=== PATIENT | female | born 1930 | race Caucasian/White ===

== ENCOUNTER 2017-06-20 08:24 | Inpatient (IN) | payer MEDICARE ==
[~2017-06-20] VITALS: Ht 167.6 cm; Wt 38.6 kg
[~2017-06-20 08:24] MED LIST: ACET-2144 PO; ALB0.5UD IH; ASPI81TA52 PO; EST1T PO; FLO0.1T PO; LISI10TA4 PO; METO-395 PO; MIRA50TA PO; POTA-82 PO; SOLI5TAB2 PO; [UNRECOGNIZED DRUG - CODE] PO
[2017-06-20 09:00] LABS: BASOPHILS % (AUTO) 0.1 % (0-1); EOSINOPHILS # (AUTO) 0.1 X10'3 (0-0.9); EOSINOPHILS % (AUTO) 0.8 % (0-6); HEMATOCRIT 32.1 % (35.0-45.0); HEMOGLOBIN 10.9 g/dl (12.0-16.0); LYMPHOCYTES # (AUTO) 1.3 X10'3 (1.1-4.8); LYMPHOCYTES % (AUTO) 11.9 % (21-51); MEAN CORPUSCULAR HGB CONC 34.2 % (33.0-36.5); MEAN CORPUSCULAR VOLUME 96.5 FL (78-98); MEAN PLATELET VOLUME 8.5 FL (7.4-10.4); MONOCYTES # (AUTO) 0.4 X10'3 (0-0.9); MONOCYTES % (AUTO) 3.6 % (2-12); NEUTROPHILS # (AUTO) 8.9 X10'3 (1.8-7.7); NEUTROPHILS % (AUTO) 83.6 % (42-75); PLATELET COUNT 192 X10'3 (140-440); RED BLOOD COUNT 3.32 X10'6 (4.20-5.60); RED CELL DISTRIBUTION WIDTH 13.1 % (11.5-14.5); WHITE BLOOD COUNT 10.7 X10'3 (4.5-11.0)
[2017-06-20] MEDS ORDERED: diltiazem 5mg/ml 5ml inj. IV ONE ×2 (09:30→10:45)
[2017-06-20 09:32] LABS: ALANINE AMINOTRANSFERASE 13 U/L (12-78); ALBUMIN 2.7 G/DL (3.4-5.0); ALBUMIN/GLOBULIN RATIO 0.7 (1.1-1.5); ALKALINE PHOSPHATASE 73 IU/L (46-116); ANION GAP 7 (8-16); ASPARTATE AMINO TRANSFERASE 15 U/L (10-37); BILIRUBIN,TOTAL 0.9 MG/DL (0.1-1.0); BLOOD UREA NITROGEN 22 MG/DL (7-18); CALCIUM 8.3 MG/DL (8.5-10.1); CHLORIDE 104 MMOL/L (99-107); CREATINE KINASE 21 U/L (26-192); ETHANOL < 0.010 GM/DL (0.0-0.010); GLUCOSE 91 MG/DL (70-104); SODIUM 146 MMOL/L (135-145); TOTAL PROTEIN 6.7 G/DL (6.4-8.2); TROPONIN I < 0.04 NG/ML (0.0-0.05); eGFR 53 ML/MIN
[2017-06-20 09:34] LABS: POTASSIUM 2.6 MMOL/L (3.5-5.1)
[2017-06-20] MEDS ORDERED: potassium Cl 20 mEq SR tablet PO ONE (09:45)
[2017-06-20] MEDS ORDERED: magnesium 2GM in 50ml NS 50 ML IV ONE (09:45)
[2017-06-20 10:01] LABS: MAGNESIUM 1.5 MG/DL (1.5-2.4)
[2017-06-20 10:05] LABS: CLARITY,URINE SLIGHTLY CLOUDY (Clear); COLOR,URINE YELLOW (Yellow); GLUCOSE, URINE NEGATIVE (Neg); KETONES,URINE TRACE mg/dl (Neg); LEUKOCYTE ESTERASE ,URINE NEGATIVE (Neg); NITRITES, URINE NEGATIVE (Neg); OCCULT BLOOD,URINE TRACE-INTACT (Neg); PROTEIN,URINE 30 mg/dl (Neg); UROBILINOGEN,URINE 0.2 E.U/dL (0.2-1.0)
[2017-06-20 10:07] LABS: UA COLLECTION TYPE STRAIGHT CATH
[2017-06-20 10:10] LABS: MUCUS STRANDS MODERATE /LPF (Neg); SQUAMOUS EPITHELIAL CELL,UR MODERATE /LPF (FEW)
[2017-06-20 10:11] LABS: BACTERIA,URINE 2+ /HPF (Neg); URINE AMPHETAMINE SCREEN NEGATIVE (Neg); URINE BARBITUATE SCREEN NEGATIVE (Neg); URINE BENZODIAZEPINES SCREEN NEGATIVE (Neg); URINE CANNABINOID SCREEN NEGATIVE (Neg); URINE COCAINE SCREEN NEGATIVE (Neg); URINE METHADONE SCREEN NEGATIVE (Neg); URINE OPIATE SCREEN NEGATIVE (Neg); URINE PHENCYCLIDINE SCREEN NEGATIVE (Neg)
[2017-06-20 10:12] LABS: RBC,URINE 0-2 /HPF (0-2)
[2017-06-20] MEDS: potassium 10mEq/100ml NS w/LIDOcaine (10mg/bag) IV SCH ×2 (11:39→13:50)
[2017-06-20] MEDS ORDERED: magnesium hydroxide 30ml (MOM) UD suspension PO PRN (12:05)
[2017-06-20] MEDS ORDERED: acetaminophen 325mg tablet PO PRN (12:05)
[2017-06-20] MEDS ORDERED: mag hydrox/Alum hydrox/simeth 30ml oral suspension PO PRN (12:05)
[2017-06-20] MEDS ORDERED: ondansetron/PF 4mg/2ml inj IV PRN (12:05)
[2017-06-20] MEDS: normal saline 1000ml 1,000 ML IV SCH ×2 (12:38→22:04)
[2017-06-20] MEDS ORDERED: CefTRIAXone/D5W-Rocephin 1gm 50 ML IV ONE (14:45)
[2017-06-20] MEDS: rivaroxaban 20mg tablet PO SCH (15:05)
[2017-06-20] MEDS: sodium chloride 0.45% 1,000 ML IV SCH (15:11)
[2017-06-20] MEDS ORDERED: FLO0.1T PO (16:12)
[2017-06-20] MEDS ORDERED: SOLI10TA2 PO (16:12)
[2017-06-20] MEDS ORDERED: ASPI-611 PO (16:12)
[2017-06-20] MEDS: diltiazem-D5W 125mg/125ml 125 ML IV SCH (17:40)
[2017-06-20] MEDS ORDERED: heparin, porcine 5000 units/ml vial SQ SCH (20:00)
[2017-06-20] MEDS ORDERED: potassium Cl 20 mEq SR tablet PO PRN ×2 (21:00)
[2017-06-20] MEDS ORDERED: potassium Cl 40MEQ/NS 500ml 500 ML IV PRN (21:00)
[2017-06-20] MEDS: potassium Cl 40MEQ/NS 500ml 500 ML IV PRN (21:45)
[2017-06-21] MEDS: sodium chloride 0.45% 1,000 ML IV SCH ×3 (00:39→19:15)
[2017-06-21] MEDS ORDERED: ibuprofen 100 MG/5 ML oral susp PO ONE (02:25)
[2017-06-21 06:19] LABS: BASOPHILS % (AUTO) 0.2 % (0-1); EOSINOPHILS # (AUTO) 0.2 X10'3 (0-0.9); EOSINOPHILS % (AUTO) 1.7 % (0-6); HEMATOCRIT 32.1 % (35.0-45.0); LYMPHOCYTES # (AUTO) 1.2 X10'3 (1.1-4.8); LYMPHOCYTES % (AUTO) 11.8 % (21-51); MEAN CORPUSCULAR HEMOGLOBIN 33.4 PG (27.0-31.0); MEAN CORPUSCULAR HGB CONC 34.4 % (33.0-36.5); MEAN CORPUSCULAR VOLUME 97.2 FL (78-98); MEAN PLATELET VOLUME 8.3 FL (7.4-10.4); MONOCYTES # (AUTO) 0.6 X10'3 (0-0.9); MONOCYTES % (AUTO) 5.9 % (2-12); NEUTROPHILS % (AUTO) 80.4 % (42-75); PLATELET COUNT 176 X10'3 (140-440); RED CELL DISTRIBUTION WIDTH 13.3 % (11.5-14.5); WHITE BLOOD COUNT 9.9 X10'3 (4.5-11.0)
[2017-06-21 06:25] LABS: INR 1.1 INR; PROTHROMBIN TIME 11.1 SECONDS (9.0-12.0)
[2017-06-21 06:27] LABS: ALBUMIN 2.5 G/DL (3.4-5.0); ANION GAP 10 (8-16); BLOOD UREA NITROGEN 21 MG/DL (7-18); BUN/CREATININE RATIO 26.3 (6.6-38.0); CALCIUM 7.8 MG/DL (8.5-10.1); CHLORIDE 106 MMOL/L (99-107); GLUCOSE 94 MG/DL (70-104); MAGNESIUM 1.7 MG/DL (1.5-2.4); POTASSIUM 4.2 MMOL/L (3.5-5.1); SODIUM 143 MMOL/L (135-145); TOTAL CARBON DIOXIDE 27.3 MMOL/L (24-32); eGFR 68 ML/MIN
[2017-06-21 07:32] LABS: BANDS% (MANUAL) 5 % (0-10); EOSINOPHILS % (MANUAL) 1 % (0-6); LYMPHOCYTES % (MANUAL) 14 % (21-51); MONOCYTES % (MANUAL) 9 % (2-12); NEUTROPHILS % (MANUAL) 71 % (42-75); PLATELET ESTIMATE NORMAL; TOTAL CELLS COUNTED 100
[2017-06-21] MEDS: rivaroxaban 20mg tablet PO SCH (08:00)
[2017-06-21] MEDS: lactobacillus rhamnosus 10,000 MMU CELLS/CAPSULE PO SCH ×2 (08:00→19:08)
[2017-06-21] MEDS: normal saline 1000ml 1,000 ML IV SCH (08:04)
[2017-06-21] MEDS ORDERED: MORPHINE 2MG in 2ml NS syringe IV PRN (10:00)
[2017-06-21] MEDS: pantoprazole 40 MG vial IV SCH (10:44)
[2017-06-21] MEDS: morphine 4 MG/ML inj SYRINge IV PRN ×2 (10:45→19:18)
[2017-06-21] MEDS ORDERED: POTA10TA10 PO (10:56)
[2017-06-21 13:15] VITALS: BP 156/68
[2017-06-21 15:00] VITALS: BP 159/67
[2017-06-21] MEDS: CefTRIAXone/D5W-Rocephin 1gm 50 ML IV SCH (15:05)
[2017-06-21] MEDS: metoprolol tartrate 1mg/ml inj IV SCH ×4 (18:50→19:35)
[2017-06-21 19:00] VITALS: BP 160/70
[2017-06-21] MEDS: heparin, porcine 5000 units/ml vial SQ SCH (19:07)
[2017-06-21] MEDS: diltiazem-D5W 125mg/125ml 125 ML IV SCH (19:10)
[2017-06-21 23:00] VITALS: BP 163/67
[2017-06-22] VITALS (13 sets, daily range): BP systolic 128–160; BP diastolic 70–97
[2017-06-22] MEDS: diltiazem-D5W 125mg/125ml 125 ML IV SCH ×2 (04:34→23:26)
[2017-06-22 05:10] LABS: BASOPHILS % (AUTO) 0.1 % (0-1); EOSINOPHILS # (AUTO) 0.1 X10'3 (0-0.9); EOSINOPHILS % (AUTO) 0.6 % (0-6); HEMATOCRIT 34.6 % (35.0-45.0); LYMPHOCYTES # (AUTO) 1.1 X10'3 (1.1-4.8); LYMPHOCYTES % (AUTO) 9.8 % (21-51); MEAN CORPUSCULAR HEMOGLOBIN 33.4 PG (27.0-31.0); MEAN CORPUSCULAR HGB CONC 34.6 % (33.0-36.5); MEAN CORPUSCULAR VOLUME 96.5 FL (78-98); MEAN PLATELET VOLUME 8.7 FL (7.4-10.4); MONOCYTES # (AUTO) 0.6 X10'3 (0-0.9); MONOCYTES % (AUTO) 5.4 % (2-12); NEUTROPHILS # (AUTO) 9.3 X10'3 (1.8-7.7); NEUTROPHILS % (AUTO) 84.1 % (42-75); PLATELET COUNT 246 X10'3 (140-440); RED BLOOD COUNT 3.58 X10'6 (4.20-5.60); RED CELL DISTRIBUTION WIDTH 12.9 % (11.5-14.5); WHITE BLOOD COUNT 11.1 X10'3 (4.5-11.0)
[2017-06-22 05:17] LABS: ALBUMIN 2.6 G/DL (3.4-5.0); ANION GAP 12 (8-16); BLOOD UREA NITROGEN 21 MG/DL (7-18); BUN/CREATININE RATIO 25.3 (6.6-38.0); CALCIUM 8.2 MG/DL (8.5-10.1); CHLORIDE 106 MMOL/L (99-107); CREATININE 0.83 MG/DL (0.40-0.90); GLUCOSE 86 MG/DL (70-104); MAGNESIUM 1.6 MG/DL (1.5-2.4); POTASSIUM 3.5 MMOL/L (3.5-5.1); PROTHROMBIN TIME 10.8 SECONDS (9.0-12.0); SODIUM 144 MMOL/L (135-145); TOTAL CARBON DIOXIDE 26.1 MMOL/L (24-32); eGFR 65 ML/MIN
[2017-06-22] MEDS: heparin, porcine 5000 units/ml vial SQ SCH ×2 (08:00→19:35)
[2017-06-22] MEDS: pantoprazole 40 MG vial IV SCH (08:11)
[2017-06-22] MEDS: rivaroxaban 20mg tablet PO SCH (08:12)
[2017-06-22] MEDS: lactobacillus rhamnosus 10,000 MMU CELLS/CAPSULE PO SCH ×2 (08:12→19:49)
[2017-06-22] MEDS: CefTRIAXone/D5W-Rocephin 1gm 50 ML IV SCH (08:12)
[2017-06-22] MEDS: sodium chloride 0.45% 1,000 ML IV SCH ×2 (14:00→19:49)
[2017-06-22] MEDS: VANCOMYCIN 750MG IV in NS 250 ML IV SCH (14:58)
[2017-06-23] VITALS (11 sets, daily range): BP systolic 95–150; BP diastolic 50–73
[2017-06-23] MEDS: sodium chloride 0.45% 1,000 ML IV SCH ×2 (02:45→12:45)
[2017-06-23 06:26] LABS: BASOPHILS % (AUTO) 0.1 % (0-1); EOSINOPHILS # (AUTO) 0.1 X10'3 (0-0.9); EOSINOPHILS % (AUTO) 1.3 % (0-6); HEMATOCRIT 36.7 % (35.0-45.0); HEMOGLOBIN 12.8 g/dl (12.0-16.0); LYMPHOCYTES # (AUTO) 1.1 X10'3 (1.1-4.8); LYMPHOCYTES % (AUTO) 11.1 % (21-51); MEAN CORPUSCULAR HEMOGLOBIN 33.5 PG (27.0-31.0); MEAN CORPUSCULAR HGB CONC 34.8 % (33.0-36.5); MEAN CORPUSCULAR VOLUME 96.4 FL (78-98); MEAN PLATELET VOLUME 8.6 FL (7.4-10.4); MONOCYTES # (AUTO) 0.2 X10'3 (0-0.9); NEUTROPHILS # (AUTO) 8.7 X10'3 (1.8-7.7); NEUTROPHILS % (AUTO) 85.5 % (42-75); PLATELET COUNT 277 X10'3 (140-440); RED BLOOD COUNT 3.81 X10'6 (4.20-5.60); RED CELL DISTRIBUTION WIDTH 12.6 % (11.5-14.5); WHITE BLOOD COUNT 10.1 X10'3 (4.5-11.0)
[2017-06-23 06:30] LABS: INR 1.1 INR; PROTHROMBIN TIME 11.6 SECONDS (9.0-12.0)
[2017-06-23 06:42] LABS: ALBUMIN 2.1 G/DL (3.4-5.0); ANION GAP 15 (8-16); BLOOD UREA NITROGEN 16 MG/DL (7-18); BUN/CREATININE RATIO 21.6 (6.6-38.0); CALCIUM 7.6 MG/DL (8.5-10.1); CHLORIDE 103 MMOL/L (99-107); CREATININE 0.74 MG/DL (0.40-0.90); GLUCOSE 75 MG/DL (70-104); MAGNESIUM 1.3 MG/DL (1.5-2.4); SODIUM 141 MMOL/L (135-145); eGFR 75 ML/MIN
[2017-06-23] MEDS ORDERED: pantoprazole 40mg Tablet.DR PO SCH (07:30)
[2017-06-23 07:37] LABS: POTASSIUM 2.7 MMOL/L (3.5-5.1)
[2017-06-23] MEDS: heparin, porcine 5000 units/ml vial SQ SCH ×2 (08:00→21:15)
[2017-06-23] MEDS: fludrocortisone acetate 0.1mg tablet PO SCH ×2 (08:00→20:00)
[2017-06-23] MEDS: rivaroxaban 20mg tablet PO SCH (08:00)
[2017-06-23] MEDS: lactobacillus rhamnosus 10,000 MMU CELLS/CAPSULE PO SCH ×2 (08:00→20:00)
[2017-06-23] MEDS ORDERED: pantoprazole 40 MG vial IV SCH (09:15)
[2017-06-23] MEDS ORDERED: magnesium hydroxide 30ml (MOM) UD suspension PO ONE (10:15)
[2017-06-23] MEDS ORDERED: bisacodyl 10mg suppository rectal RC STA (10:35)
[2017-06-23] MEDS: potassium Cl 40MEQ/NS 500ml 500 ML IV PRN (10:49)
[2017-06-23] MEDS ORDERED: enoxaparin 40mg/0.4ml syringe SQ SCH (12:00)
[2017-06-23] MEDS: diltiazem-D5W 125mg/125ml 125 ML IV SCH (13:30)
[2017-06-23] MEDS: diltiazem 30mg tablet PO SCH ×2 (15:00→20:00)
[2017-06-23] MEDS: CefTRIAXone/D5W-Rocephin 1gm 50 ML IV SCH (16:01)
[2017-06-23] MEDS ORDERED: potassium Cl oral solution 20 MEQ/15 ML PO PRN ×2 (18:21)
[2017-06-23] MEDS ORDERED: Potassium Cl inj 40 MEQ in normal saline 500ml IV soln 480 ML IV PRN (22:05)
[2017-06-24] MEDS ORDERED: diltiazem CD 120mg capsule (once-daily) PO SCH (01:00)
[2017-06-24] MEDS: diltiazem 30mg tablet PO SCH ×2 (02:00→08:00)
[2017-06-24 03:00] VITALS: BP 140/91
[2017-06-24] MEDS ORDERED: magnesium 4gm in 100ml NS 100 ML IV PRN (03:35)
[2017-06-24] MEDS ORDERED: magnesium 2GM in 50ml NS 50 ML IV PRN (03:35)
[2017-06-24] MEDS ORDERED: enalaprilat dihydrate 2.5mg/2ml vial IV ONE ×2 (05:30→13:15)
[2017-06-24 05:37] LABS: BASOPHILS % (AUTO) 0.3 % (0-1); EOSINOPHILS # (AUTO) 0.1 X10'3 (0-0.9); EOSINOPHILS % (AUTO) 0.6 % (0-6); HEMATOCRIT 37.1 % (35.0-45.0); HEMOGLOBIN 12.9 g/dl (12.0-16.0); LYMPHOCYTES % (AUTO) 8.2 % (21-51); MEAN CORPUSCULAR HEMOGLOBIN 33.4 PG (27.0-31.0); MEAN CORPUSCULAR HGB CONC 34.6 % (33.0-36.5); MEAN CORPUSCULAR VOLUME 96.4 FL (78-98); MEAN PLATELET VOLUME 8.8 FL (7.4-10.4); MONOCYTES # (AUTO) 0.4 X10'3 (0-0.9); MONOCYTES % (AUTO) 3.1 % (2-12); NEUTROPHILS # (AUTO) 11.2 X10'3 (1.8-7.7); NEUTROPHILS % (AUTO) 87.8 % (42-75); PLATELET COUNT 314 X10'3 (140-440); RED BLOOD COUNT 3.85 X10'6 (4.20-5.60); RED CELL DISTRIBUTION WIDTH 12.9 % (11.5-14.5); WHITE BLOOD COUNT 12.8 X10'3 (4.5-11.0)
[2017-06-24 06:00] VITALS: BP 187/79
[2017-06-24 06:15] LABS: INR 1.1 INR; PROTHROMBIN TIME 11.8 SECONDS (9.0-12.0)
[2017-06-24 06:23] LABS: ANISOCYTOSIS 1+; PLATELET ESTIMATE NORMAL; TOTAL CELLS COUNTED 100; TOXIC GRANULATION 1+
[2017-06-24 06:30] LABS: ALBUMIN 2.2 G/DL (3.4-5.0); ANION GAP 15 (8-16); BLOOD UREA NITROGEN 19 MG/DL (7-18); BUN/CREATININE RATIO 19.8 (6.6-38.0); CALCIUM 8.2 MG/DL (8.5-10.1); CHLORIDE 106 MMOL/L (99-107); CREATININE 0.96 MG/DL (0.40-0.90); GLUCOSE 79 MG/DL (70-104); MAGNESIUM 1.4 MG/DL (1.5-2.4); POTASSIUM 4.3 MMOL/L (3.5-5.1); SODIUM 142 MMOL/L (135-145); eGFR 55 ML/MIN
[2017-06-24] MEDS: VANCOMYCIN 750MG IV in NS 250 ML IV SCH (07:15)
[2017-06-24] MEDS: heparin, porcine 5000 units/ml vial SQ SCH (07:22)
[2017-06-24] MEDS ORDERED: LORazepam 2 mg/ml vial IV ONE ×2 (07:40→13:15)
[2017-06-24] MEDS: fludrocortisone acetate 0.1mg tablet PO SCH (08:00)
[2017-06-24] MEDS: lactobacillus rhamnosus 10,000 MMU CELLS/CAPSULE PO SCH (08:00)
[2017-06-24 08:30] VITALS: BP 145/69
[2017-06-24 11:00] VITALS: BP 189/96
[2017-06-24] MEDS ORDERED: MORPHINE 2MG in 2ml NS syringe IV ONE (13:15)
[2017-06-24] MEDS ORDERED: morphine 4 MG/ML inj SYRINge IV ONE (13:25)
[2017-06-24] MEDS ORDERED: morphine 10mg/ml inj. IV PRN (14:00)
[2017-06-24] MEDS ORDERED: LORazepam 2 mg/ml vial IV PRN (14:00)
[2017-06-24] MEDS ORDERED: morphine 10mg/0.5ml (conc. morphine) oral syringe PO PRN (14:00)
[2017-06-24] MEDS ORDERED: morphine 4 MG/ML inj SYRINge IV PRN ×2 (14:05)
[2017-06-24 19:00] VITALS: BP 161/73
[2017-06-24] MEDS: docusate sod 100mg capsule PO SCH (20:00)
[2017-06-25 06:35] VITALS: BP 160/83
[2017-06-25] MEDS: docusate sod 100mg capsule PO SCH ×2 (08:00→19:33)
[2017-06-25] MEDS ORDERED: VANCOMYCIN LEVEL IV NR (12:30)
[2017-06-26 06:30] VITALS: BP 120/74
[2017-06-26] MEDS: docusate sod 100mg capsule PO SCH ×2 (06:48→20:00)
[2017-06-26] MEDS: morphine 4 MG/ML inj SYRINge IV PRN (19:38)
[2017-06-26 20:00] VITALS: BP 129/89
[2017-06-27] MEDS: docusate sod 100mg capsule PO SCH (08:00)
== END 2017-06-27 12:41 | disposition hospice, inpatient (51) | DRG 871 ==
LOC: ER 08:24 → ED HOLD 12:04 → PCU 3S 06-21 13:05 → MED 3N 06-26 18:25
PROVIDERS: ADMIT Internal Medicine; ATTEND Family Medicine
DX: A41.9 Sepsis, unspecified organism (principal); G93.41 Metabolic encephalopathy; N17.9 Acute kidney failure, unspecified; R64 Cachexia; I48.91 Unspecified atrial fibrillation; J84.10 Pulmonary fibrosis, unspecified; R13.10 Dysphagia, unspecified; E86.0 Dehydration; D64.9 Anemia, unspecified; N39.0 Urinary tract infection, site not specified; Z68.1 Body mass index [BMI] 19.9 or less, adult; E03.9 Hypothyroidism, unspecified; E87.6 Hypokalemia; K21.9 Gastro-esophageal reflux disease without esophagitis; F03.90 Unspecified dementia, unspecified severity, without behavioral disturbance, psychotic disturbance, mood disturbance, and anxiety; R62.7 Adult failure to thrive; I51.7 Cardiomegaly; I11.9 Hypertensive heart disease without heart failure; F32.9 Major depressive disorder, single episode, unspecified; G89.29 Other chronic pain; Z51.5 Encounter for palliative care; Z66 Do not resuscitate; R40.2420 Glasgow coma scale score 9-12, unspecified time; Z90.710 Acquired absence of both cervix and uterus; Z88.6 Allergy status to analgesic agent; Z88.1 Allergy status to other antibiotic agents; Z91.011 Allergy to milk products; Z79.899 Other long term (current) drug therapy; Z79.82 Long term (current) use of aspirin
CPT/HCPCS: 36415; 70450; 70551; 71045; 74018; 80048; 80053; 80202; 80305; 80320; 81001; 82550; 82553; 83605; 83735; 83880; 84132; 84439; 84443; 84484; 85025; 85610; 87040; 87070; 87077; 87088; 87186; 87502; 87503; 92616; 93005; 93306; 97161; 97530; A6212; A6213; A6250; C1758; C9113; J0696; J1644; J1650; J2060; J2270; J2274; J3370; J3475; J3480; J3490; J7030